=== PATIENT | female | born 1955 | race African-American/Black ===

== ENCOUNTER → 2018-05-13 | Outpatient (CLI) | payer MEDICARE ==
--- NOTE | 2018-05-13 12:34 | RAD ---
DATE: 05/13/2018 EXAM: MAMMO ZOEY SCREENING BILATERAL HISTORY: Routine screening COMPARISON: 03/04/2016 This study was interpreted with the benefit of Computerized Aided Detection (CAD). Breast Density: FATTY The breast parenchyma is primarily fatty replaced. Breast parenchyma level density A. FINDINGS: 2-D and 3-D tomosynthesis imaging was performed in CC and MLO projections. No new or enlarging breast densities are seen. Scattered benign type calcifications are present. No suspicious microcalcifications have developed. IMPRESSION: Stable mammograms without evidence of malignancy. BI-RADS CATEGORY: 2 BENIGN FINDING(S) RECOMMENDED FOLLOW-UP: 12M 12 MONTH FOLLOW-UP PQRS compliance statement: Patient information was entered into a reminder system with a target due date for the next mammogram. Mammography is a sensitive method for finding small breast cancers, but it does not detect them all and is not a substitute for careful clinical examination. A negative mammogram does not negate a clinically suspicious finding and should not result in delay in biopsying a clinically suspicious abnormality. "Our facility is accredited by the [employer] Mammography Program."
== END | disposition home or self-care (01) ==
LOC: MAMMO 10:23
PROVIDERS: ATTEND Family Medicine
DX: Z12.31 Encounter for screening mammogram for malignant neoplasm of breast (principal)
CPT/HCPCS: 77063; 77067

== ENCOUNTER → 2019-07-27 | Outpatient (CLI) | payer MEDICARE ==
--- NOTE | 2019-07-28 12:25 | RAD ---
DATE: 07/27/2019. EXAM: MAMMO ZOEY SCREENING BILATERAL. HISTORY: Routine mammographic screening. COMPARISON: 05/13/2018. This study was interpreted with the benefit of Computerized Aided Detection (CAD). FINDINGS: Breast Density: SCATTERED The breast parenchyma shows scattered fibroglandular densities. Breast parenchyma level B.. Scattered and skin calcifications are benign. There are no suspicious masses, microcalcifications or architectural distortion. The parenchymal pattern is stable. BI-RADS CATEGORY: 2 BENIGN FINDING(S). RECOMMENDED FOLLOW-UP: 12M 12 MONTH FOLLOW-UP. PQRS compliance statement: Patient information was entered into a reminder system with a target due date 07/27/2020 for the next mammogram. Mammography is a sensitive method for finding small breast cancers, but it does not detect them all and is not a substitute for careful clinical examination. A negative mammogram does not negate a clinically suspicious finding and should not result in delay in biopsying a clinically suspicious abnormality. "Our facility is accredited by the [employer] Mammography [employer]."
== END | disposition home or self-care (01) ==
LOC: MAMMO 10:43
PROVIDERS: ATTEND Family Medicine
DX: Z12.31 Encounter for screening mammogram for malignant neoplasm of breast (principal); N64.89 Other specified disorders of breast
CPT/HCPCS: 77063; 77067

== ENCOUNTER → 2019-07-27 | Outpatient (CLI) | payer MEDICARE ==
--- NOTE | 2019-07-27 15:57 | KCIC ---
EXAM: Dual energy x-ray absorptiometry (DEXA). HISTORY: Post menopausal screening. TECHNIQUE: Dual energy x-ray absorptiometry of the lumbar spine and the left hip was performed. T-score of average bone mineral density based was calculated based on standard deviations above or below the expected young adult normal value. Diagnostic definitions were established by the World Health Organization. FINDINGS: The average bone mineral density associated with L1-L4 is 1.400 g/cm^2, corresponding with a T-score of 3.2. The average total bone mineral density associated with the left hip is 1.036 g/cm^2, corresponding with a T-score of 0.8. No comparison examinations are available. Refer to the worksheets for full detail. IMPRESSION: 1. Normal. Average bone mineral density yields a T-score of -1.0 or greater. Fracture risk is low. Electronically signed by: Michelle Valerio MD (07/27/2019 3:55 PM) [facility]
== END | disposition home or self-care (01) ==
LOC: KCIC DEXA 11:45
PROVIDERS: ATTEND Family Medicine
DX: Z13.820 Encounter for screening for osteoporosis (principal); Z78.0 Asymptomatic menopausal state
CPT/HCPCS: 77080

== ENCOUNTER → 2019-09-13 | Outpatient (CLI) | payer MEDICARE ==
--- NOTE | 2019-09-15 18:19 | SLEEP ---
DATE OF STUDY: 09/13/2019 SLEEP STUDY ATTENDING PHYSICIAN: Dr. Johnson. The patient is 64 years old who weighs 235 pounds with a BMI of 36. The patient's [place] score was 2. The patient underwent a split-night study performed at [facility]. During the night of study, the patient spent 443 minutes in bed and slept for 331 minutes with a sleep efficiency of 75%. Sleep latency was 45 minutes with a REM latency of 249 minutes. Sleep architecture showed increased stage 1 sleep, normal stage 2 sleep, normal slow wave, and normal REM sleep. During the initial diagnostic portion of the study, the patient slept for 129 minutes. During that time, the patient had 7 obstructive apneas, 8 mixed apneas, no central apneas, and 115 hypopneas. The patient's apnea-hypopnea index was 61 per hour, supine index of 68 per hour. REM sleep was not seen during the diagnostic portion. EKG monitoring revealed normal sinus rhythm, average heart rate 68 beats per minute. Nocturnal oximetry study revealed a mean oxygen saturation of 96% with the lowest of 79%. 30% of time oxygen saturation remained between 80% and 89%. PLMs were seen at index of 4 per hour and 1 per hour caused EEG arousals. The patient met the split-night criteria for CPAP initiation. He was started at 5 cm water and titrated up to 7 cm water. At the final pressure, the patient slept for 150 minutes. The patient had supine sleep as well as REM sleep. The patient's AHI was reduced to 1 per hour and oxygen saturation remained above 90%. The patient used medium-sized nasal pillows. IMPRESSION: 1. Severe sleep apnea-hypopnea syndrome at an AHI of 61 per hour. 2. Nocturnal hypoxia secondary to obstructive sleep apnea, but resolved with CPAP. 3. No clinically significant periodic limb movements. RECOMMENDATIONS: 1. CPAP at 7 cm water completely eliminated the patient's sleep apnea and should be used on a nightly basis. 2. Follow up in 4-6 weeks to assess compliance with CPAP and to document clinical improvement. 3. Weight loss is strongly advised. 4. Avoid QUILL LAYER depressants. 5. Cautioned regarding driving until symptoms of sleep apnea resolve with the use of CPAP. NABIL MAGAÑA MD DR: EMIL/tamir JOB#: [id number] / [id number] CARLTON Collins
== END | disposition home or self-care (01) ==
LOC: SLPLAB 18:43
PROVIDERS: ATTEND Internal Medicine Critical Care Medicine
DX: G47.33 Obstructive sleep apnea (adult) (pediatric) (principal); G47.34 Idiopathic sleep related nonobstructive alveolar hypoventilation
CPT/HCPCS: 95810

== ENCOUNTER 2020-05-30 09:32 | Emergency (ER) | payer MEDICARE ==
[~2020-05-30] VITALS: Ht 172.7 cm; Wt 106.0 kg
[2020-05-30] MEDS ORDERED: BLAC40CA PO (10:00)
[2020-05-30] MEDS ORDERED: AMLO10TA8 PO (10:00)
[2020-05-30] MEDS ORDERED: METO25TA4 PO (10:00)
[2020-05-30] MEDS ORDERED: LOSA25TA12 PO (10:00)
[2020-05-30] MEDS ORDERED: ASPI81TA59 PO (10:00)
--- NOTE | 2020-05-30 11:05 | RAD ---
Left lower extremity venous doppler ultrasound History: Left flank pain Comparison: None Findings: Multiple grayscale, color, and duplex spectral analysis sonographic images were acquired of the left lower extremity veins to evaluate for the presence of DVT. There is normal phasicity. Normal compression, color-flow, and augmentation is demonstrated from the left common femoral to the popliteal veins. There is normal color flow of the proximal greater saphenous and profunda femoris veins. There is normal color flow of segments of the calf veins. Impression: 1. There is no evidence of deep venous thrombosis from the left common femoral to the popliteal veins. Electronically signed by: Rich Bowen MD (05/30/2020 11:02 AM) [id number]
--- NOTE | 2020-05-30 11:13 | PHYS DOC ---
Past Medical History Past Medical History: Hypertension Past Surgical History: Other Additional Past Surgical Histo: L4-5 surgery Smoking Status: Never Smoker Alcohol Use: None General Adult EDM: Chief Complaint: LOWER EXT PAIN HPI: HPI: Patient is a 65 year old female who presented to ER today for evaluation of left knee pain that been going on for more than a week. Patient denies any injury, patient said it hurt whenever she bent her knee, the pain radiated up to the pelvic area. Patient denies any trouble breathing or chest pain. Patient has a history of low back pain, had back surgery before. Patient denies any bowel or bladder incontinence. Patient denies any fever. Patient denies any abdominal pain, no nausea vomiting. Patient denies any numbness or weakness in his lower extremity. Review of Systems: Review of Systems: Constitutional: Denies fever or chills. [] Eyes: Denies change in visual acuity. [] HENT: Denies nasal congestion or sore throat. [] Respiratory: Denies cough or shortness of breath. [] Cardiovascular: Denies chest pain or edema. [] GI: Denies abdominal pain, nausea, vomiting, bloody stools or diarrhea. [] : Denies dysuria. [] Musculoskeletal: Positive for left knee pain. Integument: Denies rash. [] Neurologic: Denies headache, focal weakness or sensory changes. [] Endocrine: Denies polyuria or polydipsia. [] Lymphatic: Denies swollen glands. [] Psychiatric: Denies depression or anxiety. [] Heart Score: Risk Factors: Risk Factors: DM, Current or recent (<one month) smoker, HTN, HLP, family history of CAD, obesity. Risk Scores: Score 0 - 3: 2.5% MACE over next 6 weeks - Discharge Home Score 4 - 6: 20.3% MACE over next 6 weeks - Admit for Clinical Observation Score 7 - 10: 72.7% MACE over next 6 weeks - Early Invasive Strategies Allergies: Allergies: Allergies Coded Allergies Type Severity Reaction Last Updated Verified No Known Drug Allergies 05/30/20 No Physical Exam: PE: Constitutional: Well developed, well nourished, no acute distress, non-toxic appearance. [] HENT: Normocephalic, atraumatic, bilateral external ears normal, oropharynx moist, no oral exudates, nose normal. [] Eyes: PERRLA, EOMI, conjunctiva normal, no discharge. [] Neck: Normal range of motion, no tenderness, supple, no stridor. [] Cardiovascular:Heart rate regular rhythm, no murmur [] Lungs & Thorax: Bilateral breath sounds clear to auscultation [] Abdomen: Bowel sounds normal, soft, no tenderness, no masses, no pulsatile masses. [] Skin: Warm, dry, no erythema, no rash. [] Back: No tenderness, no CVA tenderness. [] Extremities: No tenderness, no cyanosis, no clubbing, ROM intact, no edema. Left knee is tender with manipulation however there is no swelling, no redness. Neurologic: Alert and oriented X 3, normal motor function, normal sensory function, no focal deficits noted. [] Psychologic: Affect normal, judgement normal, mood normal. [] Current Patient Data: Vital Signs: Vital Signs Date Time Temp Pulse Resp B/P (MAP) Pulse Ox O2 Delivery O2 Flow Rate FiO2 05/30/20 09:43 98.4 86 16 192/95 (127) 99 Room Air 98.4 EKG: EKG: [] Radiology/Procedures: Radiology/Procedures: [][facility] [address] [place], [place] [id number] IMAGING REPORT Signed PATIENT: ENRICO ROUSSEAU ACCOUNT: [id number] : 1955 LOCATION: ER AGE: 65 SEX: F EXAM STATUS: REG ER ORD. PHYSICIAN: LYNDA REYNAGA DO REASON: left leg pain PROCEDURE: VENOUS LOWER EXTREMITY LEFT Left lower extremity venous doppler ultrasound History: Left flank pain Comparison: None Findings: Multiple grayscale, color, and duplex spectral analysis sonographic images were acquired of the left lower extremity veins to evaluate for the presence of DVT. There is normal phasicity. Normal compression, color-flow, and augmentation is demonstrated from the left common femoral to the popliteal veins. There is normal color flow of the proximal greater saphenous and profunda femoris veins. There is normal color flow of segments of the calf veins. Impression: 1. There is no evidence of deep venous thrombosis from the left common femoral to the popliteal veins. Electronically signed by: Tran Huertas MD (05/30/2020 11:02 AM) [id number] DICTATED and SIGNED BY: TRAN HUERTAS MD DATE: 05/30/20 110 [facility] [address] [place] [address] IMAGING REPORT Signed PATIENT: ENRICO ROUSSEAU ACCOUNT: [id number] : 1955 LOCATION: ER AGE: 65 SEX: F EXAM STATUS: REG ER ORD. PHYSICIAN: LYNDA REYNAGA DO REASON: left knee pain and swelling PROCEDURE: KNEE LEFT 3V Examination: KNEE LEFT 3V History: left knee pain and swelling Comparison/Correlation: None Findings: Total 3 images of the left knee were obtained. Severe patellofemoral compartment degenerative remodeling and spurring is present. Spurring at the medial and lateral compartments also noted. Mild medial compartment narrowing is present. No significant lateral compartment narrowing. No fracture or bone destruction. No definite joint effusion. Proximal tibiofibular joint degenerative changes are present. Impression: Advanced patellofemoral compartment degenerative remodeling. Spurring about the medial and lateral compartments. Electronically signed by: Beka Joel MD (05/30/2020 11:08 AM) [id number] DICTATED and SIGNED BY: BEKA JOEL MD DATE: 05/30/201107 Course & Med Decision Making: Course & Med Decision Making Pertinent Labs and Imaging studies reviewed. (See chart for details) [] Kalina Disclaimer: Kalina Disclaimer: This electronic medical record was generated, in whole or in part, using a voice recognition dictation system. Departure Departure Impression: Primary Impression: Left knee pain Disposition: 01 HOME, SELF-CARE Condition: STABLE Referrals: CARLTON QUIGLEY (PCP) please follow up with your family doctor next week for further evaluation and treatment. Patient Instructions: Knee Pain Additional Instructions: Thank you for visiting our Emergency Department. We appreciate you trusting us with your care. If any additional problems come up don't hesitate to return to visit us. Please follow up with your primary care provider so they can plan additional care if needed and know about the problem that you had. If symptoms worsen come back to the Emergency Department. Any concerning symptoms that start such as chest pain, shortness of air, weakness or numbness on one side of the body, running high fevers or any other concerning symptoms return to the ER. Scripts Naproxen Sodium (ANAPROX DS) 550 Mg Tablet 1 TAB PO BID PRN for PAIN for 15 Days, #30 TAB 0 Refills Prov: LYNDA REYNAGA DO 05/30/20 Justicifation of Admission Dx: Justifications for Admission: Justification of Admission Dx: N/A LYNDA REYNAGA DO May 30, 2020 11:13
[2020-05-30] MEDS ORDERED: NAPR-682 PO (11:45)
[2020-05-30 12:01] VITALS: BP 179/99
== END 2020-05-30 12:01 | disposition home or self-care (01) ==
LOC: ER 09:32
DX: M25.562 Pain in left knee (principal); I10 Essential (primary) hypertension; Z98.890 Other specified postprocedural states
CPT/HCPCS: 73562; 93971; 99284

== ENCOUNTER 2020-11-16 10:01 | Emergency (ER) | payer MEDICARE ==
[~2020-11-16] VITALS: Ht 172.7 cm; Wt 114.5 kg
[~2020-11-16 10:01] MED LIST: AMLO-187 PO; ASPI81TA59 PO; BLAC40CA PO; LOSA25TA12 PO; METO25TA4 PO; NAPR-682 PO
[2020-11-16 11:46] VITALS: BP 163/85
--- NOTE | 2020-11-16 11:56 | PHYS DOC ---
Past Medical History Past Medical History: Hypertension, Other Additional Past Medical Histor: Sleep Apnea Past Surgical History: Other Additional Past Surgical Histo: L4-5 surgery Smoking Status: Never Smoker Alcohol Use: None General Adult EDM: Chief Complaint: LOWER EXT PAIN HPI: HPI: Patient is a 65 year old female with history of hypertension presenting to the ED today complaining of 7 out of 10 throbbing intermittent left knee pain that is chronic but has gotten worse in the last 24 hours. Patient denies any injuries. States the pain is worse when she lays down, or ambulates on her leg. She states the pain radiates to the thigh. She states she follows up with orthopedic doctor and she was told she needs to have a knee replacement. Denies any numbness or tingling to the left lower extremity. Patient states she started using Voltaren cream and naproxen with no relief. Review of Systems: Review of Systems: Constitutional: Denies fever or chills. [] Musculoskeletal: Reports left knee pain. Denies back pain Integument: Denies rash. [] Neurologic: Denies headache, focal weakness or sensory changes. [] Psychiatric: Denies depression or anxiety. [] Heart Score: C/O Chest Pain: N/A Risk Factors: Risk Factors: DM, Current or recent (<one month) smoker, HTN, HLP, family history of CAD, obesity. Risk Scores: Score 0 - 3: 2.5% MACE over next 6 weeks - Discharge Home Score 4 - 6: 20.3% MACE over next 6 weeks - Admit for Clinical Observation Score 7 - 10: 72.7% MACE over next 6 weeks - Early Invasive Strategies Allergies: Allergies: Allergies Coded Allergies Type Severity Reaction Last Updated Verified No Known Drug Allergies 05/30/20 No Physical Exam: PE: Constitutional: Well developed, well nourished, no acute distress, non-toxic appearance. [] Skin: Warm, dry, no erythema, no rash. [] Back: No tenderness, no CVA tenderness. [] Extremities: Left knee with no obvious deformity. Full range of motion to the left knee. Negative Ariana sign, negative Savita sign, negative anterior posterior drawer sign, +2 left pedal pulse. Sensation intact to the left lower extremity. Neurologic: Alert and oriented X 3, normal motor function, normal sensory function, no focal deficits noted. [] Psychologic: Affect normal, judgement normal, mood normal. [] Current Patient Data: Vital Signs: Vital Signs Date Time Temp Pulse Resp B/P (MAP) Pulse Ox O2 Delivery O2 Flow Rate FiO2 11/16/20 10:10 98.0 73 18 171/87 (115) 98 Room Air 98.0 EKG: EKG: [] Radiology/Procedures: Radiology/Procedures: [] Course & Med Decision Making: Course & Med Decision Making Pertinent Labs and Imaging studies reviewed. (See chart for details) This is a 65-year-old female patient presented to the ED today with exacerbation of chronic left knee pain. She follows up with orthopedic doctor. She is using Voltaren cream and naproxen. Given prescription for Medrol Dosepak, and 1 2 tablets of hydrocodone and encouraged to follow-up with her orthopedic doctor Kalina Disclaimer: Kalina Disclaimer: This electronic medical record was generated, in whole or in part, using a voice recognition dictation system. Departure Departure Impression: Primary Impression: Left knee pain Qualified Codes: M25.562 - Pain in left knee; G89.29 - Other chronic pain Disposition: 01 DC HOME SELF CARE/HOMELESS Condition: STABLE Referrals: CARLTON QUIGLEY (PCP) WILLIAN COTA MD follow up in 1-2 weeks Patient Instructions: Knee Pain, [id number] Additional Instructions: You were seen for left knee pain. Continue to ice and elevate the extremity. Continue using Voltaren cream and naproxen. Please follow-up with orthopedic doctor. Take the prescribed pain medicine ordered Scripts Hydrocodone Bit/Acetaminophen (HYDROCODONE-APAP 5-325 ) 1 Tab Tablet 1 TAB PO PRN Q6HRS PRN for PAIN, #20 TAB 0 Refills Prov: MONIKA JOHN STRETCHER LEVELER OPERATOR HELPER 11/16/20 Methylprednisolone (MEDROL) 4 Mg Tab.ds.pk 1 PKG PO UD, #1 PKG Prov: BARAKUNGAMONIKA STRETCHER LEVELER OPERATOR HELPER 11/16/20 MONIKA JOHN STRETCHER LEVELER OPERATOR HELPER Nov 16, 2020 11:56
[2020-11-16] MEDS ORDERED: METH4TAB2 PO (12:07)
[2020-11-16] MEDS ORDERED: HYDR-2761 PO (12:07)
== END 2020-11-16 12:20 | disposition home or self-care (01) ==
LOC: ER 10:01
DX: M25.562 Pain in left knee (principal); G89.29 Other chronic pain; I10 Essential (primary) hypertension
CPT/HCPCS: 99283

== ENCOUNTER → 2020-12-25 | Outpatient (CLI) | payer MEDICARE, OTHER ==
[~2020-12-25] MED LIST changes: +HYDR-2761 PO; +METH4TAB2 PO
--- NOTE | 2020-12-25 11:40 | KCIC ---
Bilateral digital screening mammograms with 3D Tomosynthesis: Reason for examination: Routine screening. Comparison is made to previous studies dated back to 08/13/2014. Bilateral mammograms in CC and oblique projections were obtained with 2-D imaging and 3-D tomosynthes is imaging on a Siemens Inspiration unit and reviewed on the workstation. Interpretation was made wit h the benefit of CAD. The skin and nipples show no abnormalities. No abnormal lymph nodes are seen. The breast parenchyma i s predominantly fatty. (Breast density: Category A.) There are no new dominant masses, suspicious fabio cifications or architectural distortions. A few benign calcifications are again seen. Impression: No evidence of malignancy. Recommend routine screening. BI-RADS Category 2: Benign. "Our facility is accredited by the [employer] Mammography Program." This patient's information has been entered into a reminder system for the patient to be notified wit h the results of her examination and a target date for the next mammogram. Electronically signed by: Essie Lombardo MD (12/25/2020 11:38 AM) [id number]
== END ==
LOC: KCIC MAMMO 08:20
PROVIDERS: ATTEND Internal Medicine
DX: Z12.31 Encounter for screening mammogram for malignant neoplasm of breast (principal); R89.1 Abnormal level of hormones in specimens from other organs, systems and tissues
CPT/HCPCS: 77063; 77067

== ENCOUNTER → 2021-07-30 | Outpatient (CLI) | payer MEDICARE, OTHER ==
[~2021-07-30] MED LIST changes: -LOSA25TA12 PO; +LOSA25TA4 PO
--- NOTE | 2021-07-30 10:13 | KCIC ---
EXAM: DUAL ENERGY X-RAY ABSORPTIOMETRY (DEXA). HISTORY: Postmenopausal screening. FINDINGS: The lowest measured T-score is 1.1 in the left total femur, based on a bone mineral density of 1.080 g/cm^2. Refer to the worksheets for full detail. In comparison with the prior study of 07/27/2019, average bone mineral density at the lumbar spine thompson s changed +4.2%, while the average density at the hips has changed -7.6%. IMPRESSION: Normal. Bone mineral density yields a T-score of -1.0 or greater. Fracture risk is low. FRAX was not calculated. METHODOLOGY: Dual energy x-ray absorptiometry was performed to measure bone mineral density. The foll owing analysis is based on the 2019 Official Positions of the International Society for Clinical Dens itometry: Measurements of the hips and the average of L1-L4 are preferred. When the spine and/or hip cannot be feasibly measured or interpreted, or in the setting of hyperparathyroidism, distal radial bone minera l density may be measured. The lumbar spine T-score is based on the average bone mineral density of L1-L4. In the setting of art ifact or anatomic abnormality, some lumbar levels may be excluded, and the remaining levels used for calculation. A single lumbar level is not used for diagnosis, and if only a single level is available for assessment, another anatomic site will be used to assign a diagnosis. The hip T-score is based on the bone mineral density measurement of the femoral neck or total proxima l femur of either side, whichever is lowest. Bilateral mean values are not used for diagnosis. The forearm T-score is derived from 33% of the distal radius of the nondominant forearm. For postmenopausal and perimenopausal women, and men age 50 or older, of all ethnic groups, T-scores are calculated through comparison of the current measurement with the NHANES III database standard fo r females aged 20-29 years. The lowest T-score of the evaluated anatomic sites is used to a ssign a diagnosis based on the World Health Organization densitometric classification. In premenopausal females and males younger than age 50, a Z-score is calculated based on population s pecific reference data for patient sex and self-reported ethnicity. Electronically signed by: Michelle Valerio MD (07/30/2021 10:11 AM) [id number]
== END ==
LOC: KCIC DEXA 07:51
PROVIDERS: ATTEND Internal Medicine
DX: E28.39 Other primary ovarian failure (principal); Z78.0 Asymptomatic menopausal state
CPT/HCPCS: 77080